=== PATIENT | female | born 1985 | race Caucasian/White ===

== ENCOUNTER 2020-02-08 09:19 | Emergency (ER) | payer MEDICAID ==
[~2020-02-08] VITALS: Ht 172.7 cm; Wt 90.7 kg
--- NOTE | 2020-02-08 09:25 | NUR ---
BIBRA with RLE pain, swelling, +deformity. s/p fall and twisted her ankle from hike. 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 with iv access rac 20g POLE SH[employer]ER HELPER
[2020-02-08] MEDS ORDERED: MORPHINE SULFATE INJ 2 MG/ML DISP.SYRIN IV ONE (09:30)
[2020-02-08] MEDS ORDERED: ONDANSETRON HCL/PF - ER 4 MG/2 ML VIAL IV ONE (09:30)
[2020-02-08] MEDS ORDERED: ONDANSETRON HCL/PF 4 MG/2 ML VIAL ONE (09:31)
[2020-02-08] MEDS ORDERED: MORPHINE SULFATE INJ 4 MG/ML DISP.SYRIN ONE (09:31)
[2020-02-08] MEDS ORDERED: PROPOFOL 0 ML ONE (09:47)
[2020-02-08] MEDS ORDERED: PROPOFOL 20 ML IV ONE (09:48)
--- NOTE | 2020-02-08 09:50 | NUR ---
ALL DUE MEDS GIVEN. MD AT BEDSIDE FOR REDUCTION PROCEDURE.
--- NOTE | 2020-02-08 09:53 | NUR ---
PT AWAKE. VERBALLY RESPONSIVE AND ABLE TO FOLLOW COMMANDS. NO PAIN AT THIS TIME. V/S STABLE.
[2020-02-08] MEDS ORDERED: PROPOFOL 200 MG/20 ML VIAL IV ONE (10:00)
--- NOTE | 2020-02-08 10:17 | NUR ---
PT IN BED AWAKE, ALERT AND ABLE TO FOLLOW COMMANDS. NO PAIN AT THIS TIME. V/S STABLE
--- NOTE | 2020-02-08 10:21 | NUR ---
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
--- NOTE | 2020-02-08 10:50 | NUR ---
PT REQUESTED PAIN MEDICATION BEFORE DISCHARGE. MD AWARE WITH NEW ORDER NOTED
[2020-02-08] MEDS ORDERED: HYDROCODONE/APAP 5/325MG TABLET ONE (10:51)
[2020-02-08] MEDS ORDERED: HYDROCODONE/APAP 5/325MG TABLET PO ONE (11:00)
--- NOTE | 2020-02-08 11:05 | NUR ---
IV removed. Catheter intact and site benign. Pressure and 4x4 applied to site. No bleeding noted.
[2020-02-08 11:23] VITALS: BP 121/68
== END 2020-02-08 11:24 | disposition home or self-care (01) ==
LOC: ER 09:28
DX: S82.841A Displaced bimalleolar fracture of right lower leg, initial encounter for closed fracture (principal); K21.9 Gastro-esophageal reflux disease without esophagitis; Z88.1 Allergy status to other antibiotic agents; X50.1XXA Overexertion from prolonged static or awkward postures, initial encounter; Y93.01 Activity, walking, marching and hiking; Y92.89 Other specified places as the place of occurrence of the external cause; Y99.8 Other external cause status
CPT/HCPCS: 27810; 73590; 73610; 96374; 96375; 99285; J2270; J2405; J2704; J7030; J3490